=== PATIENT | female | born 1950 | race African-American/Black ===

== ENCOUNTER 2018-03-12 11:02 | Outpatient (CLI) | payer OTHER | END 2018-03-12 20:01 | disposition home or self-care (01) | LOC: SMA 11:02 | PROVIDERS: ATTEND Family Medicine | DX: Z12.31 Encounter for screening mammogram for malignant neoplasm of breast (principal) | CPT/HCPCS: 77067 ==

== ENCOUNTER 2018-04-27 09:37 | Outpatient (CLI) | payer OTHER | END 2018-04-27 20:40 | disposition home or self-care (01) | LOC: SMA 09:37 | PROVIDERS: ATTEND Family Medicine | DX: R92.8 Other abnormal and inconclusive findings on diagnostic imaging of breast (principal) | CPT/HCPCS: 77065 ==